=== PATIENT | male | born 1985 | race Caucasian/White ===

== ENCOUNTER 2018-04-02 09:19 | Emergency (ER) | payer SELFPAY ==
[~2018-04-02] VITALS: Ht 167.6 cm; Wt 68.0 kg
--- NOTE | ~2018-04-02 | EKG ---
[place], [place] ELECTROCARDIOGRAM REPORT NAME: ANA JAMES UNIT #: [id number] ROOM: DOCTOR: EPIPHANY DRAFT REPORT BIRTHDATE: [birth year] [facility] Test Date: 2018-04-02 Test Time: 09:42:51 Pat Name: ANA JAMES Department: Room: Gender: Director Audience Marketing: Roro Ashton : 1985 Requested By: NOEL CHING DNP Order Number: [id number] Reading MD: Isra Barros MD Measurements Intervals [place] Rate: 92 P: 45 TX: 130 QRS: 58 QRSD: 83 T: 42 QT: 341 QTc: 422 Interpretive Statements Sinus rhythm ST elev, probable normal early repol pattern Baseline wander in lead(s) V2,V3,V4,V5 Electronically Signed On 04-02-2018 18:12:46 PST by Isra Barros MD CM:EKGRPT:ELECTROCARDIOGRAM REPORT 11 NOEL CHING DNP EPIPHANY DRAFT REPORT NOEL CHING DNP
[~2018-04-02 09:19] MED LIST: 'PARAFON FORTE500 M1 PO; BACTRIM DS 8001 TA1 PO; CYCLOBENZAPRINE10 MG PO; EES400 MG PO; FLAGYL500 MG PO; KEFLEX500 MG PO; LIDEX 0.05% CRE15 GM T; LOMOTIL 0.025 M1 TA1 PO; MOTRIN800 MG PO; MYCOLOG-II 10001 CRE TP; NAPROSYN500 MG PO; NKHM; ROBAXIN750 MG PO; TRAMADOL HCL50 MG PO; VICODIN 5/500 505 MG PO; VISTARIL25 MG PO; ZOFRAN ODT4 MG SL; ZOFRAN4 MG PO
[2018-04-02] MEDS ORDERED: AVPAK AZITHROM250 MG PO (11:13)
[2018-04-02] MEDS ORDERED: MUCINEX1200 M1 PO (11:13)
[2018-04-02] MEDS ORDERED: PROAIR HFA8.5 GM INH (11:13)
[2018-04-02] MEDS ORDERED: TESSALON PERLE100 MG PO (11:13)
== END 2018-04-02 11:40 | disposition home or self-care (01) ==
LOC: ED 09:19
DX: J18.1 Lobar pneumonia, unspecified organism (principal); R09.1 Pleurisy; F17.200 Nicotine dependence, unspecified, uncomplicated; Z79.899 Other long term (current) drug therapy

== ENCOUNTER 2018-04-14 12:00 | Emergency (ER) | payer SELFPAY ==
[~2018-04-14] VITALS: Ht 167.6 cm; Wt 68.0 kg
[~2018-04-14 12:00] MED LIST changes: +AVPAK AZITHROM250 MG PO; +MUCINEX1200 M1 PO; +PROAIR HFA8.5 GM INH; +TESSALON PERLE100 MG PO
[2018-04-14 12:41] LABS: BASO # 0.1 10*3/uL (0.0-0.1); BASO % 0.9 % (0.0-1.0); EOS # 0.1 10*3/uL (0.0-0.4); EOS % 1.2 % (1.0-4.0); HEMATOCRIT 52.3 % (42.0-52.0); HEMOGLOBIN 17.9 g/dl (14.0-18.0); LYMPH # 2.3 10*3/uL (1.3-4.4); LYMPH % 24.9 % (27.0-41.0); MEAN CELL VOLUME 100.8 fl (80.0-94.0); MEAN CORPUSCULAR HGB 34.5 pg (27.0-31.0); MEAN CORPUSCULAR HGB CONC 34.2 g/dl (33.0-37.0); MEAN PLATELET VOLUME 8.5 fl (9.6-12.3); MONO # 0.5 10*3/uL (0.1-1.0); MONO % 5.1 % (3.0-9.0); NEUT # 6.2 10*3/uL (2.3-7.9); NEUT % 67.8 % (47.0-73.0); PLATELET COUNT AUTOMATED 325 10*3/uL (130-400); RED BLOOD COUNT 5.19 10*6/uL (4.50-5.90); RED CELL DISTRI WIDTH 13.6 % (0-14.5); WHITE BLOOD COUNT 9.1 10*3/uL (4.8-10.8)
[2018-04-14 12:50] LABS: BILIRUBIN NEGATIVE (NEGATIVE); BLOOD NEGATIVE (NEGATIVE); CLARITY CLEAR (CLEAR); COLOR YELLOW (YELLOW); GLUCOSE NEGATIVE (NEGATIVE); KETONE TRACE (NEGATIVE); LEUKO ESTERASE NEGATIVE (NEGATIVE); NITRITE NEGATIVE (NEGATIVE); URINE AMPHETAMINES > 1000 (1000ng/ml); URINE BARBITURATES < 200 (200ng/ml); URINE BENZODIAZEPINES > 200 (200ng/ml); URINE CANNABINOIDS (THC) > 50 (50ng/ml); URINE COCAINE < 300 (300ng/ml); URINE METHADONE < 300 (300ng/ml); URINE OPIATES < 300 (300ng/ml); UROBILINOGEN 0.2 E.U./dl (0.2-1.0)
[2018-04-14 12:55] LABS: URINE PHENCYCLIDINE < 25 (25ng/ml)
[2018-04-14 12:56] LABS: ALBUMIN 3.7 gm/dl (3.1-4.5); ALKALINE PHOSPHATASE 82 U/L (45-117); BUN 4 mg/dl (7-24); CHLORIDE 105 mmol/L (98-107); CREATININE 0.79 mg/dL (0.70-1.30); POTASSIUM 4.1 mmol/L (3.5-5.1); SGOT/AST 55 IU/L (3-35); SGPT/ALT 27 U/L (12-78); SODIUM 140 mmol/L (136-145)
[2018-04-14 13:04] LABS: EPITHELIAL CELLS 0-2; MUCOUS 1+
[2018-04-14 13:05] LABS: BACTERIA TRACE
== END 2018-04-14 18:10 | disposition home or self-care (01) ==
LOC: ED 12:00
PROVIDERS: Nurse Practitioner Family
DX: S09.90XA Unspecified injury of head, initial encounter (principal); F10.129 Alcohol abuse with intoxication, unspecified; W03.XXXA Other fall on same level due to collision with another person, initial encounter; Y93.71 Activity, boxing; Y92.096 Garden or yard of other non-institutional residence as the place of occurrence of the external cause; Y99.8 Other external cause status

== ENCOUNTER 2019-04-09 14:01 | Emergency (ER) | payer SELFPAY ==
[~2019-04-09] VITALS: Ht 167.6 cm; Wt 75.7 kg
[2019-04-09] MEDS ORDERED: ANAPROX DS550 MG PO (15:41)
== END 2019-04-09 16:10 | disposition home or self-care (01) ==
LOC: ED 14:01
DX: M25.512 Pain in left shoulder (principal); M25.522 Pain in left elbow; M79.89 Other specified soft tissue disorders; F17.200 Nicotine dependence, unspecified, uncomplicated; X50.0XXA Overexertion from strenuous movement or load, initial encounter; Y93.89 Activity, other specified; Y92.89 Other specified places as the place of occurrence of the external cause; Y99.0 Civilian activity done for income or pay

== ENCOUNTER 2019-09-22 13:05 | Emergency (ER) | payer OTHER ==
[~2019-09-22] VITALS: Ht 167.6 cm; Wt 81.6 kg
[~2019-09-22 13:05] MED LIST changes: +ANAPROX DS550 MG PO
[2019-09-22] MEDS ORDERED: CYCLOBENZAPRINE5 M3 PO (15:46)
[2019-09-22] MEDS ORDERED: MEDROL DOSEPAK4 MG PO (15:46)
[2019-09-22] MEDS ORDERED: IBU800 MG PO (15:46)
== END 2019-09-22 15:58 | disposition home or self-care (01) ==
LOC: ED 13:05
DX: S39.012A Strain of muscle, fascia and tendon of lower back, initial encounter (principal); Z90.89 Acquired absence of other organs; X50.0XXA Overexertion from strenuous movement or load, initial encounter; Y93.89 Activity, other specified; Y92.89 Other specified places as the place of occurrence of the external cause; Y99.9 Unspecified external cause status

== ENCOUNTER 2020-04-12 11:58 | Emergency (ER) | payer OTHER ==
[~2020-04-12] VITALS: Ht 167.6 cm; Wt 83.9 kg
[~2020-04-12 11:58] MED LIST changes: +CYCLOBENZAPRINE5 M3 PO; +IBU800 MG PO; +MEDROL DOSEPAK4 MG PO
== END 2020-04-12 13:37 | disposition home or self-care (01) ==
LOC: ED 11:58
DX: R50.9 Fever, unspecified (principal); Z20.828 Contact with and (suspected) exposure to other viral communicable diseases; J02.9 Acute pharyngitis, unspecified

== ENCOUNTER 2021-08-17 06:44 | Emergency (ER) | payer OTHER ==
[~2021-08-17] VITALS: Ht 167.6 cm; Wt 81.6 kg
[2021-08-17] MEDS ORDERED: CYCLOBENZAPRINE10 MG PO (07:48)
[2021-08-17] MEDS ORDERED: PREDNISONE50 MG PO (07:48)
== END 2021-08-17 08:06 | disposition home or self-care (01) ==
LOC: ED 06:44
DX: S39.012A Strain of muscle, fascia and tendon of lower back, initial encounter (principal); X50.1XXA Overexertion from prolonged static or awkward postures, initial encounter; Y93.89 Activity, other specified; Y92.89 Other specified places as the place of occurrence of the external cause; Y99.9 Unspecified external cause status

== ENCOUNTER 2021-11-01 13:32 | Emergency (ER) | payer OTHER ==
[~2021-11-01] VITALS: Ht 170.1 cm; Wt 81.6 kg
[~2021-11-01 13:32] MED LIST changes: +PREDNISONE50 MG PO
== END 2021-11-01 14:36 | disposition home or self-care (01) ==
LOC: ED 13:32
DX: S60.450A Superficial foreign body of right index finger, initial encounter (principal); Z79.899 Other long term (current) drug therapy; Z90.89 Acquired absence of other organs; W22.8XXA Striking against or struck by other objects, initial encounter; Y93.89 Activity, other specified; Y92.89 Other specified places as the place of occurrence of the external cause; Y99.9 Unspecified external cause status

== ENCOUNTER 2022-01-02 11:33 | Emergency (ER) | payer OTHER ==
[~2022-01-02] VITALS: Wt 81.6 kg
[2022-01-02] MEDS ORDERED: PREDNISONE50 MG PO (13:07)
[2022-01-02] MEDS ORDERED: CYCLOBENZAPRINE10 MG PO (13:07)
== END 2022-01-02 13:14 | disposition home or self-care (01) ==
LOC: ED 11:33
DX: S39.012A Strain of muscle, fascia and tendon of lower back, initial encounter (principal); X50.9XXA Other and unspecified overexertion or strenuous movements or postures, initial encounter; Y93.89 Activity, other specified; Y92.89 Other specified places as the place of occurrence of the external cause; Y99.8 Other external cause status

== ENCOUNTER 2022-06-14 12:46 | Emergency (ER) | payer OTHER ==
[~2022-06-14] VITALS: Ht 167.6 cm; Wt 81.6 kg
[2022-06-14] MEDS ORDERED: SEPTDS PO (13:53)
[2022-06-14] MEDS ORDERED: CEPHALEXIN500 M1 PO (13:53)
[2022-06-14] MEDS ORDERED: HYDROCODONE-AC1 EAC1 PO (14:22)
== END 2022-06-14 14:08 | disposition home or self-care (01) ==
LOC: ED 12:46
DX: N49.2 Inflammatory disorders of scrotum (principal)

== ENCOUNTER 2024-04-08 12:21 | Emergency (ER) | payer OTHER ==
[~2024-04-08] VITALS: Ht 167.6 cm; Wt 81.6 kg
[~2024-04-08 12:21] MED LIST changes: +CEPHALEXIN500 M1 PO; +HYDROCODONE-AC1 EAC1 PO; +SEPTDS PO
[2024-04-08] MEDS ORDERED: Ondansetron Hydrochloride 4 MG/2 ML VIAL IV ONE (13:55)
[2024-04-08] MEDS ORDERED: SODIUM CHLORIDE 0.9% 1,000 ML IV ONE (13:55)
[2024-04-08] MEDS ORDERED: ACETAMINOPHEN 325 MG TAB PO ONE (14:00)
[2024-04-08 14:15] LABS: BASO % 0.2 % (0.0-1.0); HEMATOCRIT 46.3 % (42.0-52.0); MEAN CELL VOLUME 100.7 fl (80.0-94.0); MEAN CORPUSCULAR HGB 35.9 pg (27.0-31.0); MEAN CORPUSCULAR HGB CONC 35.6 g/dl (33.0-37.0); MEAN PLATELET VOLUME 8.6 fl (9.6-12.3); MONO # 0.9 10*3/uL (0.1-1.0); MONO % 7.2 % (3.0-9.0); NEUT % 85.3 % (47.0-73.0); PLATELET COUNT AUTOMATED 232 10*3/uL (130-400); RED CELL DISTRI WIDTH 12.7 % (0-14.5); WHITE BLOOD COUNT 12.9 10*3/uL (4.8-10.8)
[2024-04-08 14:32] LABS: BUN 8 mg/dl (9-23); CHLORIDE 98 mmol/L (98-107); POTASSIUM 4.2 mmol/L (3.4-5.1)
[2024-04-08] MEDS ORDERED: PREDNISONE20 M1 PO (15:31)
[2024-04-08] MEDS ORDERED: Phenergan25 MG PO (15:31)
[2024-04-08] MEDS ORDERED: AVPAK AZITHROM250 M1 PO (15:31)
[2024-04-08] MEDS ORDERED: methylPREDNISolone sod succ 125 MG VIAL IV ONE (15:35)
[2024-04-08] MEDS ORDERED: AZITHROMYCIN 250 MG TAB PO ONE (15:35)
== END 2024-04-08 15:53 | disposition home or self-care (01) ==
LOC: ED 12:21
PROVIDERS: Nurse Practitioner Family
DX: J18.9 Pneumonia, unspecified organism (principal); Z20.822 Contact with and (suspected) exposure to COVID-19; E86.0 Dehydration; B34.9 Viral infection, unspecified; R11.2 Nausea with vomiting, unspecified; R19.7 Diarrhea, unspecified; F17.200 Nicotine dependence, unspecified, uncomplicated; Z98.890 Other specified postprocedural states